=== PATIENT | male | born 1990 | race Caucasian/White ===

== ENCOUNTER 2018-01-29 07:33 | Emergency (ER) | payer BC, OTHER ==
[~2018-01-29] VITALS: Ht 185.4 cm; Wt 149.7 kg
[2018-01-29] MEDS: KETOROLAC TROMETHAMINE 60 MG/2 ML VIAL IM ONE (08:30)
[2018-01-29] MEDS: DEXAMETHASONE SOD PHOS 10 MG/1 ML VIAL INJ ONE (08:31)
--- NOTE | 2018-01-29 08:48 | Diagnostic Imaging Report ---
PROCEDURE:KNEE LEFT THREE VIEWS TECHNIQUE:AP, lateral and oblique views left knee INDICATION:Left knee pain COMPARISON:None. FINDINGS: The left knee image regional skeleton are intact and in anatomic alignment. Normal joint space. Questionable small effusion. CONCLUSION: No evidence of acute traumatic injury. Questionable small joint effusion. Dictated by: Js Peterson M.D. on 01/29/2018 at 8:49 Electronically approved by: Js Peterson M.D. on 01/29/2018 at 8:49
[2018-01-29] MEDS: COLCHICINE 0.6 MG TAB PO STA (10:05)
== END 2018-01-29 10:45 | disposition home or self-care (01) ==
LOC: ER 07:33
DX: M10.9 Gout, unspecified (principal)
CPT/HCPCS: 36415; 73562; 84550; 99283; J1100; J1885